=== PATIENT | male | born 2000 | race Caucasian/White ===

== ENCOUNTER 2024-10-07 11:44 | Inpatient (IN) | payer MEDICAID, SELFPAY ==
[2024-10-07] VITALS (10 sets, daily range): BP systolic 120–135; BP diastolic 70–83; PULSE 64–150; RESP 12–99; TEMP 36.3–40.6; O2SAT 95–100; BMI 22.2
--- NOTE | 2024-10-07 11:51 | XR_ITS ---
Examination: AP chest single view Technique one AP portable supine chest single view Date and time: October 07, 2024 1214 hrs. Indications: Overdose today. Findings: Normal heart size. No aspiration pneumonia. Osseous structures intact Impression: No aspiration pneumonia
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
[2024-10-07 12:24] LABS: Lactate (Lactic Acid) 2.6 mMol/L (0.4-2.0)
[2024-10-07 12:32] LABS: Basophils # (Auto) 0.1 Thou/mm3 (0.0-0.2); Basophils % (Auto) 0 % (0-2.5); Eosinophils % (Auto) 0 % (0-10); Hematocrit 39.2 % (41.0-53.0); Hemoglobin 13.1 g/dL (13.5-16.0); Immature Granulocytes % (Auto) 0 % (0-0); Immature Granulocytes Auto 0.03 Thou/mm3 (0.00-0.00); Lymphocytes # (Auto) 1.8 Thou/mm3 (1.0-4.8); Lymphocytes % (Auto) 15 % (10-50); Mean Corpuscular HGB Conc 33.4 g/dl (31.0-37.0); Mean Corpuscular Hemoglobin 26.8 pg (25.0-35.0); Mean Corpuscular Volume 80 fL (80-100); Monocytes # (Auto) 0.9 Thou/mm3 (0.0-0.8); Monocytes % (Auto) 7 % (0-12); Neutrophils # (Auto) 8.8 Thou/mm3 (1.8-7.7); Neutrophils % (Auto) 76 % (37-80); Nucleated Red Blood Cell % 0 /100 WBC (0); Platelet Count 442 Thou/mm3 (140-440); RDW Standard Deviation 44.4 fL (35.1-43.9); Red Blood Count 4.89 Miln/mm3 (4.50-5.90); White Blood Count 11.5 Thou/mm3 (3.8-10.6)
[2024-10-07 12:39] LABS: INR 1.1 (0.9-1.3); Partial Thromboplastin Time 21.6 Seconds (22.0-36.0); Prothrombin Time 11.9 Seconds (9.0-12.2)
[2024-10-07 12:43] LABS: B-Type Natriuretic Peptide < 20 pg/mL (0-100)
[2024-10-07 12:44] LABS: Alanine Aminotransferase 108 U/L (10-49); Albumin, Serum 5.1 gm/dL (3.5-5.0); Albumin/Globulin Ratio 1.3 (1.2-2.2); Alcohol, Blood Medical < 3.0 mg/dL (0-10.0); Alkaline Phosphatase 132 U/L (46-116); Anion Gap 14 (7-16); Aspartate Amino Transferase 298 U/L (0-34); BUN/Creatinine Ratio 17 Ratio (12-20); Bilirubin,Total 0.7 mg/dL (0.3-1.2); Blood Urea Nitrogen 33 mg/dL (9-23); Calcium 9.7 mg/dL (8.3-10.6); Calcium (Corrected) 9.7 mg/dL (8.5-10.1); Chloride 100 mMol/L (98-107); Creatinine (Component) 1.9 mg/dL (0.6-1.3); Globulin 3.8 gm/dL (2.3-3.5); Glucose 133 mg/dL (74-106); Lipase 63 U/L (12-53); Magnesium 2.9 mg/dL (1.6-2.6); Osmolality,Calculated 284 (275-295); Potassium 4.4 mMol/L (3.4-5.1); Sodium 138 mMol/L (136-145); Total Protein 8.9 gm/dL (5.7-8.2); Troponin I < 0.020 ng/mL (0.0-0.045); eGFR 48 See Note
[2024-10-07] MEDS: SODIUM CHLORIDE 0.9% 1000 ML 1,000 ML 999 ML IV ×3 (13:07→18:10)
--- NOTE | 2024-10-07 13:13 | XR_ITS ---
Examination: CT brain head without contrast. 2-D sagittal coronal reconstructions Date and time of exam:October 07, 2024 1432 hrs. Indications: Overdose with altered mental status today CTDI: vol (mGy):48.3 DLP: (mGycm):989 Technique: Multiple CT axial sections of the brain have been obtained, 5 mm slice thickness. Contrast has not been administered. 2-D sagittal, coronal reconstructions have been obtained Low dose protocols were performed. One or more of the following dose reduction techniques were used; automated exposure control, adjustment of the mA and/or KV according to patient size, use of iterative reconstruction technique. Findings: No significant ventricular enlargement. Intra-axial or extra-axial hemorrhage density is not seen. No mass effect or midline shift Basal cisterns are not remarkable. Fourth ventricle is midline. Cranial vault intact. Impression: Negative for acute hemorrhage, mass effect or midline shift
[2024-10-07 13:15] LABS: Collection Type, Urine Clean Catch
[2024-10-07 13:23] LABS: Carboxyhemoglobin 3.7 % (0.5-1.5)
[2024-10-07 13:27] LABS: Allen Test Performed/OK; Base Excess -3 (-3-3); HCO3 23 mEq/L (20-26); Inspired Oxygen, FIO2 6 %; O2 Saturation 100 % (91-98); PCO2 41 mmHg (32.0-48.0); PO2 171 mmHg (83-108); Puncture Site Right Radial; pH, Arterial 7.35 (7.35-7.45)
[2024-10-07 13:29] LABS: Amphetamine/Methamp Scrn,U Positive (Negative); Barbiturate Screen,Urine Negative (Negative); Benzodiazepines Screen,Urine Positive (Negative); Benzoylecgonine Screen, Ur Negative (Negative); Fentanyl Screen,Urine Positive (Negative); Opiate Screen,Urine Negative (Negative); THC Screen,Urine Positive (Negative)
[2024-10-07 13:30] LABS: Bilirubin,Urine Negative (Negative); Blood,Urine 3+ (Negative); Color,Urine Yellow (Lt Yel-Yel); Glucose, Urine Negative (Negative); Granular Casts,Urine 5 /hpf (0-1); Ketones,Urine Trace (Negative); Leukocyte Esterase,Urine Negative (Negative); Nitrite,Urine Negative (Negative); Protein,Urine 2+ (Neg - Trace); RBC,Urine 8 /hpf (0-3); Specific Gravity,Urine 1.033 (1.001-1.035); Squamous Epithelial Cell,Urine 1 /hpf (0-5); Transitional Epi Cells,Urine 1 /hpf (0-5); WBC,Urine 5 /hpf (0-5)
[2024-10-07 13:45] LABS: Clarity,Urine Hazy (Clear/Hazy); Sperm,Urine Present
[2024-10-07 13:59] LABS: Creatine Kinase 8807 U/L (34-171)
[2024-10-07 15:21] LABS: Reflex Lactate? Y
[2024-10-07 15:34] LABS: Lactic Acid, 3 HR 0.7 mMol/L (0.4-2.0)
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
[2024-10-07] MEDS: CIPROFLOXACIN/D5w 400 MG IVPB 400 MG/200 ML BAG 200 MG IV (18:10)
[2024-10-07] MEDS: DIPHTH,PERTUSS(ACELL),TET VAC 0.5 ML SYR- ADULT IMi (18:56)
[2024-10-07 19:14] LABS: Acetaminophen < 2.0 mcg/mL (10.0-20.0); Salicylate < 3.0 mg/dL
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
[2024-10-07] MEDS: SODIUM CHLORIDE 0.9% 1000 ML 1,000 ML 250 ML IV (22:10)
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
[2024-10-07 23:24] LABS: Creatine Kinase 4986 U/L (34-171)
[2024-10-08] VITALS (13 sets, daily range): BP systolic 137–144; BP diastolic 66–81; PULSE 45–98; RESP 10–98; TEMP 36.3–37.2; O2SAT 97–100
[2024-10-08] MEDS: SODIUM CHLORIDE 0.9% 1000 ML 1,000 ML 250 ML IV ×3 (02:31→10:35)
[2024-10-08] MEDS: HEPARIN SOD INJ 5000 UNIT/ML VIAL SC ×2 (05:27→15:37)
[2024-10-08 05:57] LABS: Basophils % (Auto) 0 % (0-2.5); Eosinophils # (Auto) 0.1 Thou/mm3 (0.0-0.5); Eosinophils % (Auto) 1 % (0-10); Hematocrit 29.2 % (41.0-53.0); Hemoglobin 9.6 g/dL (13.5-16.0); Immature Granulocytes % (Auto) 0 % (0-0); Immature Granulocytes Auto 0.03 Thou/mm3 (0.00-0.00); Lymphocytes # (Auto) 2.7 Thou/mm3 (1.0-4.8); Lymphocytes % (Auto) 27 % (10-50); Mean Corpuscular HGB Conc 32.9 g/dl (31.0-37.0); Mean Corpuscular Hemoglobin 26.5 pg (25.0-35.0); Mean Corpuscular Volume 81 fL (80-100); Monocytes # (Auto) 0.9 Thou/mm3 (0.0-0.8); Monocytes % (Auto) 9 % (0-12); Neutrophils % (Auto) 62 % (37-80); Nucleated Red Blood Cell % 0 /100 WBC (0); Platelet Count 254 Thou/mm3 (140-440); RDW Standard Deviation 47.6 fL (35.1-43.9); Red Blood Count 3.62 Miln/mm3 (4.50-5.90); White Blood Count 9.8 Thou/mm3 (3.8-10.6)
[2024-10-08 06:23] LABS: INR 1.1 (0.9-1.3); Prothrombin Time 12.2 Seconds (9.0-12.2)
[2024-10-08 06:28] LABS: Alanine Aminotransferase 63 U/L (10-49); Albumin, Serum 3.2 gm/dL (3.5-5.0); Alkaline Phosphatase 88 U/L (46-116); Anion Gap 10 (7-16); Aspartate Amino Transferase 130 U/L (0-34); BUN/Creatinine Ratio 25 Ratio (12-20); Bilirubin,Direct 0.1 mg/dL (0.0-0.3); Bilirubin,Total 0.4 mg/dL (0.3-1.2); Blood Urea Nitrogen 20 mg/dL (9-23); Carbon Dioxide 23.7 mMol/L (20.0-31.0); Cardiac Risk Estimate 2.2 RATIO (4.0-6.7); Chloride 107 mMol/L (98-107); Cholesterol 76 mg/dL (132-200); Creatinine (Component) 0.8 mg/dL (0.6-1.3); Estimated Creatinine Clearance 126.1 mL/min (>60); Glucose 104 mg/dL (74-106); HDL Cholesterol 34 mg/dL (40-60); LDL Cholesterol,Calculated 34 mg/dL (0-130); Osmolality,Calculated 283 (275-295); Potassium 4.4 mMol/L (3.4-5.1); Sodium 141 mMol/L (136-145); Total Protein 5.7 gm/dL (5.7-8.2); Triglycerides 39 mg/dL (30-150); eGFR > 60 See Note
[2024-10-08 07:02] LABS: Creatine Kinase 3346 U/L (34-171)
[2024-10-08] MEDS: NICOTINE PATCH 21 MG/24 HR PATCH.TD24 TOP (10:30)
[2024-10-08] MEDS: LORazepam 0.5 MG TABLET 2 MG PO ×2 (10:33→18:40)
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
[2024-10-08] MEDS: NAPH,KPH MBDB 1 PACKET (1.5 GM) PO ×2 (15:37→20:33)
[2024-10-08] MEDS: SODIUM CHLORIDE 0.9% 1000 ML 1,000 ML 125 ML IV (18:40)
[2024-10-09] VITALS: BP 128/72; PULSE 78; PULSE 85; RESP 18; TEMP 36.7; O2SAT 100
[2024-10-09] MEDS: SODIUM CHLORIDE 0.9% 1000 ML 1,000 ML 125 ML IV ×2 (02:40→11:23)
[2024-10-09 04:00] VITALS: BP 138/68; PULSE 69; PULSE 88; RESP 17; TEMP 36.6; O2SAT 100
[2024-10-09 08:00] VITALS: BP 123/74; PULSE 102; PULSE 73; RESP 18; TEMP 36.3; O2SAT 100
[2024-10-09] MEDS: NICOTINE PATCH 21 MG/24 HR PATCH.TD24 TOP (09:01)
[2024-10-09] MEDS: LORazepam 0.5 MG TABLET 2 MG PO (09:02)
--- NOTE | 2024-10-09 09:16 | PC.SS ---
Follow up note: Pt is on IV fluids. If labs are ok then pt will d/c.
[2024-10-09 10:31] LABS: Basophils % (Auto) 0 % (0-2.5); Eosinophils # (Auto) 0.1 Thou/mm3 (0.0-0.5); Eosinophils % (Auto) 1 % (0-10); Hematocrit 29.6 % (41.0-53.0); Hemoglobin 9.8 g/dL (13.5-16.0); Immature Granulocytes % (Auto) 0 % (0-0); Immature Granulocytes Auto 0.02 Thou/mm3 (0.00-0.00); Lymphocytes # (Auto) 1.6 Thou/mm3 (1.0-4.8); Lymphocytes % (Auto) 20 % (10-50); Mean Corpuscular HGB Conc 33.1 g/dl (31.0-37.0); Mean Corpuscular Hemoglobin 26.6 pg (25.0-35.0); Mean Corpuscular Volume 80 fL (80-100); Monocytes # (Auto) 0.6 Thou/mm3 (0.0-0.8); Monocytes % (Auto) 8 % (0-12); Neutrophils # (Auto) 5.4 Thou/mm3 (1.8-7.7); Neutrophils % (Auto) 70 % (37-80); Nucleated Red Blood Cell % 0 /100 WBC (0); Platelet Count 245 Thou/mm3 (140-440); RDW Standard Deviation 46.1 fL (35.1-43.9); Red Blood Count 3.69 Miln/mm3 (4.50-5.90); White Blood Count 7.7 Thou/mm3 (3.8-10.6)
[2024-10-09 10:51] VITALS: PULSE 109; RESP 18; RESP 99
[2024-10-09 11:03] LABS: Alanine Aminotransferase 51 U/L (10-49); Albumin, Serum 3.1 gm/dL (3.5-5.0); Albumin/Globulin Ratio 1.3 (1.2-2.2); Alkaline Phosphatase 82 U/L (46-116); Anion Gap 9 (7-16); Aspartate Amino Transferase 64 U/L (0-34); BUN/Creatinine Ratio 13 Ratio (12-20); Bilirubin,Total 0.2 mg/dL (0.3-1.2); Blood Urea Nitrogen 8 mg/dL (9-23); Calcium (Corrected) 8.7 mg/dL (8.5-10.1); Carbon Dioxide 23.2 mMol/L (20.0-31.0); Chloride 107 mMol/L (98-107); Creatine Kinase 994 U/L (34-171); Creatinine (Component) 0.6 mg/dL (0.6-1.3); Estimated Creatinine Clearance 168.1 mL/min (>60); Globulin 2.4 gm/dL (2.3-3.5); Glucose 105 mg/dL (74-106); Osmolality,Calculated 275 (275-295); Potassium 3.8 mMol/L (3.4-5.1); Sodium 139 mMol/L (136-145); Total Protein 5.5 gm/dL (5.7-8.2); eGFR > 60 See Note
--- NOTE | 2024-10-09 11:16 | PC.SS ---
SS met with patient regarding his d/c plan. Pt is alert/oriented. Pt was admitted for Rhabdomyolysis, GABY. Pt states he his homeless. Pt ambulates independently without assistance or DME. Pt is ok with all ADLs. Pt named his grandmother, Cori Booker, phone# [phone] as his emergency contact. SS provided choices for d/c to [facility] half-way and pt refused. Patient states she has a place to stay on [address]. Pt is requesting transportation to the [facility] on [facility] at d/c. Patient's tox screen on admission was positive for meth, marijuana, cocaine, and fentanly. Pt states he has been using fentanly for 5 years. Pt is open to attending the [facility]. SS provided pt with [facility]. Pt states he does not have PCP. SS provided verbal choices for PCP and pt is requesting to follow up with the residents at [facility]. SS made pt an appointment for WednesdayOctober 13 at the 3pm with Dr. Manzo. SS provided pt with appointment information. Pt states he does not have clothes. Pt will require clothes, transportation, and sack lunch at co. D/C plan: [facility] [address] [facility] Emergency contact: Cori Booker, grandmother, phone# [phone] PCP: [facility] Address: Correct on facesheet
[2024-10-09 12:00] VITALS: BP 144/75; PULSE 75; PULSE 78; RESP 17; TEMP 36.3; O2SAT 98
[2024-10-09] MEDS: BACITRACIN OINT 15 GM TUBE TOP (14:00)
--- NOTE | 2024-10-09 14:30 | PC.NURSE ---
Discharge orders in, pending clothing and transportation. Social service aware pt requesting [employer] for transport.
--- NOTE | 2024-10-09 14:36 | PC.CC ---
clarified with Dr. Manzo for wound care follow up. He stated that wound care treatment has been established by our wound nurse.
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
--- NOTE | 2024-10-09 15:40 | PC.NURSE ---
Pt Grandmother called stating she would like to pick him up, take him home with her and help him get to follow up appointments. Pt agreeable, web services architect notified
[2024-10-09 16:00] VITALS: BP 139/72; PULSE 71; RESP 17; TEMP 36.1; O2SAT 99
--- NOTE | 2024-10-09 16:07 | PC.SS ---
SS provided pt with T-shirt, shorts, underwear, and shoes. Pt has socks. David ANDERSON has patient's sack lunch at the nurses station. SS met with pt who states his grandmother will provide transportation and is he will be staying with her. Pt refused Uber transport. SS spoke to David ANDERSON who explained he can setup Uber if needed. SS also provided UC with taxi voucher. Bedside nurse, Sherri is aware. Pt has the Community Resources List.
== END 2024-10-09 15:56 | disposition home or self-care (01) | DRG 469 ==
LOC: SERX 21:47 → SERHOLD 22:49 → S3SX 23:47
PROVIDERS: Emergency Medicine; Student in an Organized Health Care Education/Training Program; Admitting Provider Student in an Organized Health Care Education/Training Program; Emergency Provider Emergency Medicine; Visit Provider Student in an Organized Health Care Education/Training Program
DX: N17.9 Acute kidney failure, unspecified (principal); M62.82 Rhabdomyolysis; R74.01 Elevation of levels of liver transaminase levels; G92.8 Other toxic encephalopathy; T22.219A Burn of second degree of unspecified forearm, initial encounter; D72.829 Elevated white blood cell count, unspecified; E83.39 Other disorders of phosphorus metabolism; F15.10 Other stimulant abuse, uncomplicated; F12.10 Cannabis abuse, uncomplicated; F11.23 Opioid dependence with withdrawal; E87.20 Acidosis, unspecified; F17.200 Nicotine dependence, unspecified, uncomplicated; Z59.00 Homelessness unspecified; Z56.0 Unemployment, unspecified
CPT/HCPCS: 36415; 36600; 70450; 71045; 80048; 80053; 80061; 80076; 80307; 80320; 80329; 81001; 82375; 82550; 82803; 83605; 83690; 83735; 83880; 84100; 84145; 84484; 85025; 85610; 85730; 87040; 87081; 87086; 87811; 90471; 90715; 93005; 93225; 96127; 96365; 96375; 99285; J0744; J1644; J7030; A9270; G0480